=== PATIENT | male | born 1960 | race Two or more races ===

== ENCOUNTER 2016-08-03 08:39 | Inpatient (IN) | payer OTHER ==
[~2016-08-03] VITALS: Ht 167.6 cm; Wt 88.5 kg
[2016-08-03 08:46] VITALS: BP 162/98
--- NOTE | 2016-08-03 08:59 | NUR ---
Patient ambulated to bed 04.
--- NOTE | 2016-08-03 09:00 | NUR ---
56M BIB FAMILY C/O BL UPPER BACK PAIN, RADIATING TO BL SIDES, SHOULDERS, AND ANTERIOR CHEST, SHARP, 8/10 X 1 WEEK; PT STATES WENT TO URGENT CARE ON SUNDAY, PRESCRIBED IBUPROFEN W/ NO RELIEF OF PAIN. PT DENIES TRAUMA OR INJURY TO SITE AT THIS TIME; A&OX4, BL LUNG SOUNDS CLEAR, RR EVEN/UNLABORED, SKIN IS WARM/DRY/INTACT AT THIS TIME; PT DENIES N/V/D AT THIS TIME; AMBULATORY W/ STEADY GAIT; PT RESTING IN BED W/ HOB ELEVATED AND IN LOWEST POSITION; FAMILY AT BEDSIDE; ER MD MADE AWARE OF STATUS. WILL CONTINUE TO MONITOR.
--- NOTE | 2016-08-03 09:09 | NUR ---
Dr. Atwood evaluating patient at bedside.
[2016-08-03] MEDS ORDERED: NACL 0.9% 1,000 ML IV ONE (09:10)
[2016-08-03] MEDS ORDERED: HYDROmorphone 1 MG/ML AMP IVP ONE (09:10)
[2016-08-03] MEDS ORDERED: ONDANSETRON 4 MG/2 ML VIAL IVP ONE (09:10)
--- NOTE | 2016-08-03 09:24 | NUR ---
PT TAKEN TO CT VIA W/C ACCOMPANIED BY OIL TRANSPORT DRIVER.
[2016-08-03 09:26] LABS: WHITE BLOOD COUNT (AUTO) 4.5 K/uL (4.8-10.8)
[2016-08-03 09:29] LABS: HEMATOCRIT 46.8 % (36-52); HEMOGLOBIN 16.1 g/dL (12.0-18.0); MEAN CORPUSCULAR HEMOGLOBIN 31 pg (27-31); MEAN CORPUSCULAR HGB CONC 34 g/dL (33-37); MEAN CORPUSCULAR VOLUME 91 fL (80-94); PLATELET COUNT (AUTO) 201 K/uL (140-450); RED BLOOD CELL COUNT(AUTO) 5.17 MIL/uL (4.20-6.10)
[2016-08-03 09:43] LABS: ALBUMIN 3.8 g/dL (3.4-5.0); ANION GAP 16.8 (8-16); CALCIUM 7.3 mg/dL (8.5-10.1); CARBON DIOXIDE 22.5 mmol/L (21-32); POTASSIUM 4.3 mmol/L (3.5-5.1); TOTAL BILIRUBIN 0.9 mg/dL (0.0-1.0)
[2016-08-03 09:45] LABS: EOSINOPHILS % (MANUAL) 3 % (0-4); LYMPHOCYTES % (MANUAL) 34 % (20-46); MONOCYTES % (MANUAL) 5 % (5-12); NEUTROPHILS % (MANUAL) 58 (43-65)
--- NOTE | 2016-08-03 10:18 | NUR ---
Dr. Atwood at bedside to re evaluate patient.
--- NOTE | 2016-08-03 10:31 | NUR ---
PT TAKEN TO XRAY VIA W/C ACCOMPANIED BY Nautal.
[2016-08-03] MEDS ORDERED: ASPIRIN 81 MG TAB.CHEW PO ONE (10:45)
--- NOTE | 2016-08-03 10:59 | NUR ---
Patient appears to be resting comfortably in bed. Respirations even and unlabored. AT BEDSIDE; DENIES ANY DISTRESS AT THIS TIME; WILL CONTINUE TO MONITOR.
--- NOTE | 2016-08-03 11:29 | NUR ---
PER ER MD DR. ESCALERA, AWAITING KETONE LEVELS BEFORE CALLING REPORT AND TRANSFERRRING PT TO FLOOR; WILL CONTINUE TO MONITOR.
--- NOTE | 2016-08-03 12:19 | NUR ---
RECEIVED CALL FROM LAB; STATED UNABLE TO RUN LIPIDS PT NOT FASTING; PT STATES HAD 1 DONUT & 1 COFFEE AT 0800 TODAY; ER MD DR. ESCALERA NOTIFIED.
[2016-08-03 12:23] LABS: CREATININE 0.6 mg/dL (0.6-1.3)
[2016-08-03 12:24] LABS: TOTAL PROTEIN, SERUM 6.5 g/dL (6.4-8.2)
--- NOTE | 2016-08-03 12:25 | NUR ---
REPORT GIVEN TO JAIME MEADOWS; ER MD DR. ESCALERA STATED MAY CALL REPORT AND HAVE RN FOLLOW UP ACETONE LEVELS WERE SENT TO [facility] AND WILL TAKE A FEW HOURS TO PROCESS;
[2016-08-03 12:30] VITALS: BP 145/94
--- NOTE | 2016-08-03 12:30 | NUR ---
ADMITTED PT FROM ER, ALERT ORIENTED X4, AMBULATORY, TRANSFERRED TO BED SAFELY AND COMFORTABLY. BREATHING EVEN AND UNLABORED UPON AUSCULTATION, NO ACUTE DISTRESS NOTED. HOOKED TO ENGINEER CONDUCTOR. SINUS RHYTHM NOTED. DENIES ANY PAIN AT THIS TIME. ACTIVE BOWEL SOUNDS PRESENT ON ALL FOUR QUADRANTS. DENIES ANY BLADDER OR BOWEL ELIMINATION PROBLEM. SKIN INTACT, BODY ASSESSMENT DONE. ON FALL PRECAUTION DUE TO PAST HISTORY OF FALL. SAFETY PRECAUTION MAINTAINED, CALL LIGHT WITHIN REACH, KEPT CLEAN DRY AND COMFORTABLE.
--- NOTE | 2016-08-03 12:33 | NUR ---
Patient will be admitted to care of MAGANA. Admited to TELEMETRY. Will go to room 112A Belongings list completed. Report to ABDIEL SANDOVAL; ABDIEL SANDOVAL NOTIFIED TO FOLLOW UP ON PT'S ACETONE LEVEL SENT TO [facility].
[2016-08-03] MEDS ORDERED: INFLUENZA VIRUS VACCINE QUAD 0.5 ML SYR IMVAC SCH (14:00)
[2016-08-03] MEDS ORDERED: PNEUMOCOCCAL VACCINE 23 MCG/0.5 ML VIAL IMVAC SCH (14:00)
[2016-08-03] MEDS ORDERED: GLIP10TA3 PO (14:05)
[2016-08-03] MEDS ORDERED: METF850T PO (14:05)
[2016-08-03] MEDS ORDERED: LISI10TA11 PO (14:05)
[2016-08-03] MEDS ORDERED: MORPHINE SULFATE 2 MG/ML SYR IVP PRN (15:20)
[2016-08-03] MEDS ORDERED: ONDANSETRON 4 MG/2 ML VIAL IVP PRN ×2 (15:20→19:40)
[2016-08-03] MEDS ORDERED: DEXTROSE 50% 50 ML SYR IVP PRN (15:20)
[2016-08-03] MEDS ORDERED: HYDROcodone/APAP 5/325 MG 1 TAB TAB PO PRN (15:20)
[2016-08-03] MEDS ORDERED: ACETAMINOPHEN 325 MG TAB PO PRN ×2 (15:20→19:40)
--- NOTE | 2016-08-03 15:30 | NUR ---
VERIFIED ORDERS WITH DR. MAGANA AND CARRIED OUT.
[2016-08-03 16:00] VITALS: BP 138/89
--- NOTE | 2016-08-03 16:30 | NUR ---
DUE MEDS GIVEN PO, TOLERATED WELL, COMPLAINED OF LEFT UPPER CHEST PAIN 8/10, MEDICATED PER MD ORDER.
[2016-08-03] MEDS: BLOOD GLUCOSE MONITORING 1 DEV DEV FS SCH ×2 (16:54→21:11)
[2016-08-03] MEDS: glipiZIDE 10 MG TAB PO SCH (16:56)
[2016-08-03] MEDS: INSULIN LISPRO SLIDING SCALE 100 UNITS/ML VIAL SUBQ PRN ×2 (17:00→21:14)
--- NOTE | 2016-08-03 18:00 | NUR ---
PT AWAKE, VERBALIZED PAIN IS SUBSIDING, ATE 100% OF HIS DINNER, WALKING AROUND HIS BED, FAMILY PRESENT. KEPT CLEAN, DRY AND COMFORTABLE, NEEDS ATTENDED.
--- NOTE | 2016-08-03 19:24 | NUR ---
ENDORSED TO NURSE KENNY, PT ON STABLE CONDITION, NO PAIN AT THIS TIME.
--- NOTE | 2016-08-03 19:25 | NUR ---
RECEIVED PT FROM DAY SHIFT NURSE PT IS AAOX4 AMBULATORY HL ON LEFT AC PATENT, ON TELEMETRY SR, DENIES ANY PAIN AT THIS TIME RELATIVES AT BED SIDE INITIAL ASSESSMENT DONE
[2016-08-03] MEDS ORDERED: LORazepam 2 MG/ML VIAL IVP PRN (19:40)
[2016-08-03 20:00] VITALS: BP 141/88
[2016-08-03] MEDS: MORPHINE SULFATE 2 MG/ML SYR IVP PRN (20:30)
--- NOTE | 2016-08-03 20:30 | NUR ---
REGINO DAVIS IS HERE AND SEE THE PT AND ORDER TO TRANSFER PT TO ANOTHER ROOM PT WILL BE ON 109 B
[2016-08-03] MEDS: NACL 0.9% 1,000 ML IV SCH (20:31)
--- NOTE | 2016-08-03 21:00 | NUR ---
BLOOD SUGAR TEST 185 COVERAGE WITH 2 UNITS HUMALOG SUBQ
[2016-08-04] VITALS: BP 135/73
--- NOTE | 2016-08-04 | NUR ---
PT REMAIN STABLE SLEEPING WELL DENIES ANY PAIN ON TELEMETRY SR
[2016-08-04 04:00] VITALS: BP 136/78
[2016-08-04] MEDS: MORPHINE SULFATE 2 MG/ML SYR IVP PRN ×4 (04:07→23:47)
--- NOTE | 2016-08-04 04:10 | NUR ---
PT COMPLAINT OF CHEST PAIN MEDIC WILL BE GIVEN ARDER
--- NOTE | 2016-08-04 05:26 | NUR ---
AFTERLKPAIN MEDIC GIVEN PT IS SLEEPING WELL NOT DISTRESS NOTED
[2016-08-04] MEDS: HYDROcodone/APAP 5/325 MG 1 TAB TAB PO PRN ×3 (06:02→20:59)
[2016-08-04] MEDS: BLOOD GLUCOSE MONITORING 1 DEV DEV FS SCH ×4 (06:03→20:54)
[2016-08-04] MEDS: INSULIN LISPRO SLIDING SCALE 100 UNITS/ML VIAL SUBQ PRN ×3 (06:04→20:55)
[2016-08-04 06:10] LABS: HEMATOCRIT 44.2 % (36-52); HEMOGLOBIN 15.3 g/dL (12.0-18.0); MEAN CORPUSCULAR HEMOGLOBIN 32 pg (27-31); MEAN CORPUSCULAR HGB CONC 35 g/dL (33-37); MEAN CORPUSCULAR VOLUME 91 fL (80-94); PLATELET COUNT (AUTO) 193 K/uL (140-450); RED BLOOD CELL COUNT(AUTO) 4.85 MIL/uL (4.20-6.10); RED CELL DISTRIBUTION WIDTH 12.5 % (11.6-13.7); WHITE BLOOD COUNT (AUTO) 4.6 K/uL (4.8-10.8)
--- NOTE | 2016-08-04 06:31 | NUR ---
BLOOD SUGAR TEST 214 COVERAGE WITH 4 UNITS SUBQ HUMALOG
[2016-08-04 06:43] LABS: ALBUMIN 3.1 g/dL (3.4-5.0); ANION GAP 13.9 (8-16); CALCIUM 6.8 mg/dL (8.5-10.1); CREATININE 0.6 mg/dL (0.6-1.3); MAGNESIUM 1.8 mg/dL (1.8-2.4); POTASSIUM 3.9 mmol/L (3.5-5.1); TOTAL BILIRUBIN 0.6 mg/dL (0.0-1.0)
[2016-08-04 06:59] LABS: CHOL/HDL RATIO 15.5 (1-4.5); CHOLESTEROL 419 mg/dL (<200); HDL CHOLESTEROL 27 mg/dL (40-60)
--- NOTE | 2016-08-04 07:15 | NUR ---
RECEIVED PT IN BED AWAKE ALERT ORIENTEDX4, BREATHING EVEN AND UNLABORED ON ROOM AIR, DENIES ANY PAIN OR DISCOMFORT AT THIS TIME. ACTIVE BOWEL SOUNDS NOTED ON ALL FOUR QUADRANTS. DENIES ANY PAIN OR DISCOMFORT WITH VOIDING AND BOWEL MOVEMENT. WITH ON GOING IVF OF 0.9NACL AT 75ML PER HOUR ON LEFT AC, INFUSING WELL, NO INFILTRATION NOTED. PT AMBULATES TO THE BATHROOM WITH NO PROBLEM. INITIAL VITAL SIGNS TAKEN AND RECORDED. SAFETY PRECAUTION MAINTAINED. CALL LIGHT WITHIN REACH. KEPT COMFORTABLE.
[2016-08-04 07:29] LABS: TRIGLYCERIDES 2782 mg/dL (30-150)
[2016-08-04] MEDS ORDERED: metFORMIN 850 MG TAB PO SCH (07:30)
[2016-08-04 07:52] LABS: TOTAL PROTEIN, SERUM 6.7 g/dL (6.4-8.2)
[2016-08-04 08:00] VITALS: BP 132/85
--- NOTE | 2016-08-04 08:02 | NUR ---
PATIENT HAS BEEN SCREENED AND CATEGORIZED HIGH NUTRITION RISK. PATIENT WILL BE SEEN WITHIN 1-2 DAYS OF ADMISSION. 08/04/16-08/05/[address]
[2016-08-04 08:45] LABS: PLATELET ESTIMATE ADEQUATE
[2016-08-04 08:46] LABS: BAND % (MANUAL) 1 % (0-8); BASOPHILS % (MANUAL) 0 % (0-2); EOSINOPHILS % (MANUAL) 1 % (0-4); LYMPHOCYTES % (MANUAL) 28 % (20-46); MONOCYTES % (MANUAL) 7 % (5-12); NEUTROPHILS % (MANUAL) 63 (43-65)
[2016-08-04] MEDS ORDERED: ATORVASTATIN 80 MG TAB PO SCH (09:00)
--- NOTE | 2016-08-04 09:25 | NUR ---
FAXED INITIAL REVIEW TO [facility] [phone] PHONE PRASAD [phone]
[2016-08-04] MEDS: LISINOPRIL 10 MG TAB PO SCH (09:52)
[2016-08-04] MEDS: glipiZIDE 10 MG TAB PO SCH ×3 (09:52→17:52)
[2016-08-04] MEDS: NACL 0.9% 1,000 ML IV SCH ×2 (09:52→23:47)
[2016-08-04] MEDS: ENOXAPARIN 40 MG/0.4 ML SYR SUBQ SCH (09:56)
--- NOTE | 2016-08-04 13:14 | NUR ---
08/04/16 RD INITIAL ASSESSMENT COMPLETED PLEASE REFER TO NUTRITION ASSESSMENT UNDER CARE ACTIVITY FOR ESTIMATED NUTRITIONAL NEEDS. RD RECOMMENDATIONS: 1. [facility]OMM[facility]/T ELEVATED GLUCOSE LEVELS OF 277 AND POC GLUCOSE RANGING FROM [phone] AND PHX OF DM II 3. RD WILL F/U 3-5 DAYS; MODERATE RISK. SHA LOPEZ, RD
[2016-08-04 13:17] VITALS: BP 135/80
[2016-08-04 16:00] VITALS: BP 129/83
--- NOTE | 2016-08-04 18:51 | NUR ---
PT AWAKE, SITTING ON BEDSIDE CHAIR, KEPT CLEAN DRY AND COMFORTABLE. NEEDS ATTENDED. DENIES ANY PAIN OR DISCOMFORT AT THIS TIME, VERBALIZED RELIEF FROM CHEST PAIN AFTER, MORPHINE IVP ADMINISTERED PRN ORDERED. WILL CONTINUE TO MONITOR.
--- NOTE | 2016-08-04 19:30 | NUR ---
PT ENDORSED TO RN KENNY ON STABLE CONDITION
--- NOTE | 2016-08-04 19:31 | NUR ---
RECEIVED PT FROM DAY SHIFT NURSE PT UKRAINIAN SPEAKER AAOX4 AMBULATORY ON TELEMETRY SR IV ON LEFT AC INFUSING WELL RELATIVES AT BED SIDE INITIAL ASSESSMENT DONE
[2016-08-04 20:00] VITALS: BP 141/89
[2016-08-04] MEDS ORDERED: INSULIN DETEMIR 100 UNITS/ML 10 ML VIAL SUBQ SCH (21:00)
--- NOTE | 2016-08-04 21:30 | NUR ---
BLOOD SUGAR TEST 227 COVERAGE WITH 4 UNITS HUMALOG SUB Q
--- NOTE | 2016-08-04 22:30 | NUR ---
PT REMAIN STABLE SLEEPING WELL NOT DISTRESS NOTED AT THIS TIME ON TELEMETRY SR
[2016-08-05] VITALS: BP 128/85
--- NOTE | 2016-08-05 00:37 | NUR ---
PT SLEEPING WELL AFTER PPAIN MEDIC GIVEN , ON TELEMETRY SR AND IV ON LEFT AC INFUSING WELL
[2016-08-05 04:00] VITALS: BP 141/84
--- NOTE | 2016-08-05 04:00 | NUR ---
PT AWAKE AMBULATES TO THE RESTROOM VOIDING WELL ON TELEMETRY SR, IV ON LEFT AC INFUSING WELL, NOT DISTRESS AT THIS TIME NOTED
[2016-08-05] MEDS: MORPHINE SULFATE 2 MG/ML SYR IVP PRN (05:46)
[2016-08-05] MEDS: BLOOD GLUCOSE MONITORING 1 DEV DEV FS SCH ×4 (05:47→20:30)
[2016-08-05] MEDS: INSULIN LISPRO SLIDING SCALE 100 UNITS/ML VIAL SUBQ PRN ×4 (05:49→20:33)
[2016-08-05 06:05] LABS: HEMATOCRIT 42.9 % (36-52); HEMOGLOBIN 15.2 g/dL (12.0-18.0); MEAN CORPUSCULAR HEMOGLOBIN 32 pg (27-31); MEAN CORPUSCULAR HGB CONC 36 g/dL (33-37); MEAN CORPUSCULAR VOLUME 90 fL (80-94); PLATELET COUNT (AUTO) 199 K/uL (140-450); RED BLOOD CELL COUNT(AUTO) 4.79 MIL/uL (4.20-6.10); RED CELL DISTRIBUTION WIDTH 12.2 % (11.6-13.7); WHITE BLOOD COUNT (AUTO) 4.6 K/uL (4.8-10.8)
--- NOTE | 2016-08-05 06:11 | NUR ---
BLOOD SUGAR TEST 219 COVERAGE WITH 4 UNITS INSULIN HUMALOG SUBQ
--- NOTE | 2016-08-05 06:27 | NUR ---
AFTER PAIN MEDIC GIVEN PT SLEEPING WELL NOT PAIN ON TELEMETRY SR
[2016-08-05 06:32] LABS: ALBUMIN 3.3 g/dL (3.4-5.0); CALCIUM 7.6 mg/dL (8.5-10.1); CARBON DIOXIDE 27.8 mmol/L (21-32); CREATININE 0.6 mg/dL (0.6-1.3); POTASSIUM 3.8 mmol/L (3.5-5.1); TOTAL BILIRUBIN 0.5 mg/dL (0.0-1.0); TOTAL PROTEIN, SERUM 6.4 g/dL (6.4-8.2)
--- NOTE | 2016-08-05 07:15 | NUR ---
RECEIVED REPORT FROM THE OPERATIONS CLERK NURSE AT BEDSIDE FOR CONTINUITY OF CARE. PT IS ALERT AND AWAKE. NOTED THE IV ON L AC 20 NS AT 75ML. PT HAS NO COMPLAINTS AT THIS TIME. WILL BE BACK TO REASSESS PT.
[2016-08-05 07:21] LABS: BAND % (MANUAL) 1 % (0-8); BASOPHILS % (MANUAL) 0 % (0-2); EOSINOPHILS % (MANUAL) 3 % (0-4); LYMPHOCYTES % (MANUAL) 36 % (20-46); MONOCYTES % (MANUAL) 7 % (5-12); NEUTROPHILS % (MANUAL) 53 (43-65); PLATELET ESTIMATE ADEQUATE
[2016-08-05 08:00] VITALS: BP 140/89
[2016-08-05] MEDS ORDERED: oxyCODONE/APAP 5/325 MG 1 TAB TAB PO PRN (08:00)
--- NOTE | 2016-08-05 08:00 | NUR ---
V/S WITHIN NORMAL RANGE. WILL CONTINUE MONITOR PT.
[2016-08-05] MEDS: LISINOPRIL 10 MG TAB PO SCH (08:42)
[2016-08-05] MEDS: ENOXAPARIN 40 MG/0.4 ML SYR SUBQ SCH (08:43)
[2016-08-05] MEDS: glipiZIDE 10 MG TAB PO SCH ×3 (08:43→16:26)
--- NOTE | 2016-08-05 09:00 | NUR ---
ADMINISTERED MORNING MEDS. PT TOLERATED WELL. WILL CONTINUE TO MONITOR PT.
[2016-08-05] MEDS: BACLOFEN 10 MG TAB PO SCH ×3 (09:10→16:26)
[2016-08-05] MEDS: INSULIN DETEMIR 100 UNITS/ML 10 ML VIAL SUBQ SCH ×2 (09:13→20:32)
[2016-08-05] MEDS: oxyCODONE/APAP 5/325 MG 1 TAB TAB PO PRN ×2 (09:16→18:30)
[2016-08-05] MEDS: FENOFIBRATE 48 MG TAB PO SCH (09:19)
[2016-08-05 09:25] LABS: CHOL/HDL RATIO 15.9 (1-4.5); CHOLESTEROL 414 mg/dL (<200); HDL CHOLESTEROL 26 mg/dL (40-60); TRIGLYCERIDES 2398 mg/dL (30-150)
--- NOTE | 2016-08-05 10:20 | NUR ---
IS HERE. WANTED TO KNOW WHAT THE HAD SAID. WILL LOOK INTO IT AND LET HER KNOW. PT HAS NO COMPLAINTS. NO SIGNS OF DISTRESS. WILL CONTINUE TO MONITOR PT.
--- NOTE | 2016-08-05 11:25 | NUR ---
SPOKE TO PT AND ABOUT DR. KRISHNAMURTHY'S PLAN, TO KEEP HIM FOR A DAY OR TWO MORE. PT'S BACK PAIN AND DIABETES IS NOT WELL CONTROLLED. DR. MAGANA DID INCLUDE BACLOFEN AND TRICOR AND LEVEMIR 10 UNITS BID. WE WILL SEE. PT C/O OF OROPEZA, REQUESTED SOME TYLENOL. WILL GIVE IT. Addendum: 08/05/16 at 1218 by Ema Weathers RN EDUCATED PT AND ABOUT DIABETES AND HOW TO CONTROL. GOOD DIET AND EXERCISE, REGULAR DRBasilia VISITS AND TAKE MEDICATION ORDERED. THEY BOTH VERBALIZED UNDERSTANDING.
[2016-08-05] MEDS: NACL 0.9% 1,000 ML IV SCH (11:46)
--- NOTE | 2016-08-05 13:00 | NUR ---
PT ASLEEP. I WOKE UP PT AND ADMINISTERED AFTERNOON MEDS. PT TOLERATED WELL. NO OTHER COMPLAINTS. WENT RIGHT BACK TO SLEEP. IS NO LONGER AT BEDSIDE. WILL CONTINUE TO MONITOR PT.
--- NOTE | 2016-08-05 15:29 | NUR ---
PT IS SLEEPING. IS BACK AT BEDSIDE. NO SIGNS OF DISTRESS. WILL CONTINUE TO MONITOR PT.
[2016-08-05 15:55] VITALS: BP 143/87
--- NOTE | 2016-08-05 17:16 | NUR ---
PT SLEEPING COMFORTABLY. NO SIGNS OF DISTRESS. WILL CONTINUE TO MONITOR PT.
--- NOTE | 2016-08-05 19:10 | NUR ---
ENDORSED PT TO THE TIRE AND TUBE REPAIRER NURSE AT BEDSIDE FOR CONTINUITY OF CARE. PT IS AWAKE AND AT BEDSIDE. PT IS IN STABLE CONDITION.
--- NOTE | 2016-08-05 19:18 | NUR ---
RECEIVED REPORT FROM ABDIEL TESFAYE, AT BEDSIDE. INITIAL ASSESSMENT AND BODY CHECK DONE. PATIENT AAO X 4, ABLE TO FOLLOW COMMAND AND MAKE NEEDS KNOWN AND AMBULATORY BY SELF WITH STEADY GAIT. PATIENT CURRENTLY SITTING UP ON THE BED AND TALKING TO HIS . NO S/S OF DISTRESS OR SOB NOTED. SKIN WARM/DRY TO TOUCH WITH NORMAL COLOR AND INTACT. DISCUSSED PLAN OF CARE, PAIN MANAGEMENT AND MEDICATION REGIMEN WITH PATIENT AND PATIENT VERBALIZED UNDERSTANDING. PLACED PATIENT ON SAFETY PRECAUTIONS AND WILL CONTINUE TO MONITOR. CALL LIGHT LEFT WITHIN REACH.
--- NOTE | 2016-08-05 22:00 | NUR ---
ADMINISTERED DUE MEDICATION MD'S ORDERED WITH EDUCATION GIVEN. PATIENT COMPLYING WITH MEDICATION AND TOLERATED WELL. RESTED COMFORTABLE IN BED WITH ALL NEEDS ATTENDED. WILL CONTINUE TO MONITOR.
[2016-08-06] VITALS: BP 122/74
[2016-08-06] MEDS: NACL 0.9% 1,000 ML IV SCH
--- NOTE | 2016-08-06 00:39 | NUR ---
PATIENT ASLEEP COMFORTABLY IN BED, EASILY AROUSED AND REMAINED IN STABLE CONDITION. NO ANY COMPLAINT MADE. WILL CONTINUE TO MONITOR.
[2016-08-06] MEDS: oxyCODONE/APAP 5/325 MG 1 TAB TAB PO PRN (01:33)
--- NOTE | 2016-08-06 03:50 | NUR ---
PATIENT IS CLINICALLY STABLE WITHOUT APPARENT DISTRESS NOTED. WILL CONTINUE TO MONITOR.
[2016-08-06] MEDS: BLOOD GLUCOSE MONITORING 1 DEV DEV FS SCH ×2 (05:44→11:37)
[2016-08-06] MEDS: INSULIN LISPRO SLIDING SCALE 100 UNITS/ML VIAL SUBQ PRN ×2 (05:46→11:48)
[2016-08-06 06:28] LABS: CHOL/HDL RATIO 15.8 (1-4.5); CHOLESTEROL 364 mg/dL (<200); HDL CHOLESTEROL 23 mg/dL (40-60)
[2016-08-06 06:41] LABS: TRIGLYCERIDES 2177 mg/dL (30-150)
--- NOTE | 2016-08-06 07:20 | NUR ---
ENDORSED PLAN OF CARE TO ABDIEL ALBARRAN, AT BEDSIDE. PATIENT RESTED WELL THROUGHOUT THE SHIFT AND REMAINED IN STABLE CONDITION WITHOUT S/S OF DISTRESS NOTED.
--- NOTE | 2016-08-06 07:21 | NUR ---
RECEIVED REPORT FROM ABDIEL JAEGER. PT IS RESTING ON BED, AAO X4, SKIN INTACT, IV ON LEFT AC PATENT AND INTACT, INITIAL ASSESSMENT DONE, NO S/S OF RESPIRATORY DISTRESS OR DISCOMFORT NOTED, DISCUSSED PLAN OF CARE. PT VERBALIZED UNDERSTANDING, SAFETY/FALL PRECAUTION ENFORCED, CALL LIGHT WITHIN REACH, WILL CONTINUE TO MONITOR.
[2016-08-06 08:00] VITALS: BP 135/96
[2016-08-06] MEDS: LISINOPRIL 10 MG TAB PO SCH (08:31)
[2016-08-06] MEDS: BACLOFEN 10 MG TAB PO SCH (08:31)
[2016-08-06] MEDS: FENOFIBRATE 48 MG TAB PO SCH (08:31)
[2016-08-06] MEDS: glipiZIDE 10 MG TAB PO SCH (08:31)
[2016-08-06] MEDS: ENOXAPARIN 40 MG/0.4 ML SYR SUBQ SCH (08:33)
[2016-08-06] MEDS: INSULIN DETEMIR 100 UNITS/ML 10 ML VIAL SUBQ SCH (08:37)
--- NOTE | 2016-08-06 08:41 | NUR ---
DUE MEDS GIVEN, PT TOLERATED WELL, CALL LIGHT WITHIN REACH, WILL CONTINUE TO MONITOR.
[2016-08-06] MEDS ORDERED: FENO145T PO (11:03)
[2016-08-06] MEDS ORDERED: BACL10TA4 PO (11:03)
[2016-08-06] MEDS ORDERED: ACET-2869 PO (11:03)
--- NOTE | 2016-08-06 11:55 | NUR ---
DISCHARGE INSTRUCTIONS AND PRESCRIPTION GIVEN, PT VERBALIZED UNDERSTANDING, REMOVED ID WRISTBAND AND IV, CATHETER TIP INTACT, PT REFUSED PNA AND FLU VACCINE, ADVISED PT TO GET VACCINES FROM PCP IF HE CHANGE HIS MIND, VERBALIZED UNDERSTANDING. PT LEFT THE UNIT AMBULATING. PT STABLE UPON DISCHARGE.
== END 2016-08-06 11:55 | disposition home or self-care (01) | DRG 351 ==
LOC: MED 08:39 → MTU 12:24
PROVIDERS: ADMIT Hospitalist; ATTEND Hospitalist
DX: M79.1 Myalgia (principal); E11.65 Type 2 diabetes mellitus with hyperglycemia; I11.9 Hypertensive heart disease without heart failure; K76.89 Other specified diseases of liver; I20.0 Unstable angina; M79.602 Pain in left arm; M54.9 Dorsalgia, unspecified; E78.5 Hyperlipidemia, unspecified; G51.0 Bell's palsy; Z98.890 Other specified postprocedural states
CPT/HCPCS: 36415; 71020; 80053; 82009; 82150; 82948; 83036; 83690; 83735; 84443; 84484; 85025; 86038; 87081; 93005; 96361; 96374; 96375; 99285; J1170; J1650; J1815; J2270; J2405; J7030

== ENCOUNTER 2016-08-31 08:24 | Emergency (ER) | payer OTHER ==
[~2016-08-31] VITALS: Ht 167.6 cm; Wt 83.9 kg
[~2016-08-31 08:24] MED LIST: ACET-2869 PO; BACL10TA4 PO; FENO145T PO; GLIP10TA3 PO; LISI10TA11 PO; METF850T PO
[2016-08-31 08:28] VITALS: BP 131/101
--- NOTE | 2016-08-31 08:33 | NUR ---
Patient ambulated to bed 08.
--- NOTE | 2016-08-31 08:40 | NUR ---
PATIENT PRESENTS TO ED WITH CHEST AND UPPER BACK PAIN X1 MONTH; DENIES N/V/D; SKIN IS PINK/WARM/DRY; AAOX4 WITH EVEN AND STEADY GAIT; LUNGS CLEAR BL; HR EVEN AND REGULAR; PT DENIES ANY FEVER, CP, SOB, OR COUGH AT THIS TIME; PATIENT STATES CHEST AND BACK PAIN OF 10/10 AT THIS TIME; VSS; PATIENT POSITIONED FOR COMFORT; HOB ELEVATED; BEDRAILS UP X2; BED DOWN. ER MD MADE AWARE OF PT STATUS.
--- NOTE | 2016-08-31 08:46 | NUR ---
Dr. Hu evaluating patient at bedside.
[2016-08-31] MEDS ORDERED: KETOROLAC 60 MG/2 ML VIAL IM ONE (08:50)
[2016-08-31 09:19] VITALS: BP 141/98
== END 2016-08-31 09:19 | disposition home or self-care (01) ==
LOC: MED 08:24
DX: R07.89 Other chest pain (principal); E11.9 Type 2 diabetes mellitus without complications; I10 Essential (primary) hypertension
CPT/HCPCS: 93005; 96372; 99283; J1885

== ENCOUNTER 2019-09-05 13:33 | Emergency (ER) | payer OTHER ==
[~2019-09-05] VITALS: Ht 149.9 cm; Wt 70.8 kg
[~2019-09-05 13:33] MED LIST changes: -ACET-2869 PO; +HYDR-5122 PO
[2019-09-05 13:39] VITALS: BP 140/84
[2019-09-05 13:44] VITALS: BP 140/84
--- NOTE | 2019-09-05 13:44 | NUR ---
Patient ambulated to bed 4
--- NOTE | 2019-09-05 13:54 | NUR ---
59 Y/O MALE PRESENTS WITH ITCHINESS/STABBING PAIN ON LOWER LEFT BACK THAT PT BELIEVES TO BE RASH THAT STARTED 4-5 DAYS AGO. UPON INSPECTIONS, NO REDNESS/WELTS/SWELLING NOTED. SMALL RED BUMPS NOTED ON LEFT LOWER BACK. DENIES N/V/D/FEVER. RESP EVEN AND UNLABORED. DENIES ANY SOB/CP. HX SHINGLES 4 YEARS AGO
--- NOTE | 2019-09-05 13:57 | NUR ---
Patient discharged with v/s stable. Written and verbal after care instructions given and explained about early shingles. Patient alert, oriented and verbalized understanding of instructions. Ambulatory with steady gait. All questions addressed prior to discharge. ID band removed. Patient advised to follow up with PMD. Rx of prednisone and valtrex given. Patient educated on indication of medication including possible reaction and side effects. Opportunity to ask questions provided and answered.
== END 2019-09-05 13:57 | disposition home or self-care (01) ==
LOC: MED 13:33
DX: B02.9 Zoster without complications (principal); E11.9 Type 2 diabetes mellitus without complications; I10 Essential (primary) hypertension; Z79.899 Other long term (current) drug therapy; Z79.84 Long term (current) use of oral hypoglycemic drugs
CPT/HCPCS: 99283

== ENCOUNTER 2019-10-07 10:12 | Emergency (ER) | payer OTHER ==
[~2019-10-07] VITALS: Ht 167.6 cm; Wt 86.2 kg
--- NOTE | 2019-10-07 10:17 | NUR ---
PT AMBULATED TO BED 12
[2019-10-07 10:19] VITALS: BP 133/80
--- NOTE | 2019-10-07 10:25 | NUR ---
59 y/o male presented in ED c/o lower left back pain x 1.5 months . Pt states it feels like a ball under his skin , rates 9/10 constant stabbing pain. Pt states the only thing that helps take the pain away is edibles. Pt states he previously had shingles and thought this might be the same thing but doesn't feel the same as the time he had shingles. Pt breathing even and unlabored, A/O x 4. Pt sitting in bed at lowest position, side rails x1. Hx: Shingles, DM, HTN Rx: Glyperside , metformin
[2019-10-07] MEDS ORDERED: IBUPROFEN 400 MG TAB PO ONE (10:40)
--- NOTE | 2019-10-07 10:45 | NUR ---
Pt taken to X-Ray via wheelchair.
--- NOTE | 2019-10-07 10:53 | NUR ---
Pt returned from x-ray via wheelchair. Pt sitting in bed at lowest position, side rails x1
--- NOTE | 2019-10-07 10:55 | NUR ---
Pt ambulated to restroom w/ steady gait.
--- NOTE | 2019-10-07 11:00 | NUR ---
pt sitting in bed at lowest position, side rails x1.
--- NOTE | 2019-10-07 11:24 | NUR ---
Dr. Nuno at bedside.
[2019-10-07 11:40] VITALS: BP 133/80
--- NOTE | 2019-10-07 11:40 | NUR ---
Patient discharged with v/s stable. Written and verbal after care instructions given and explained. Patient alert, oriented and verbalized understanding of instructions. Ambulatory with steady gait. All questions addressed prior to discharge. ID band removed. Patient advised to follow up with PMD. Rx of Speer, Naprosyn, Hydrocortisone given. Patient educated on indication of medication including possible reaction and side effects. Opportunity to ask questions provided and answered.
== END 2019-10-07 11:40 | disposition home or self-care (01) ==
LOC: MED 10:12
DX: M54.5 Low back pain (principal); E11.9 Type 2 diabetes mellitus without complications; I10 Essential (primary) hypertension; L24.9 Irritant contact dermatitis, unspecified cause; Z90.49 Acquired absence of other specified parts of digestive tract; Z79.899 Other long term (current) drug therapy
CPT/HCPCS: 72100; 99283

== ENCOUNTER 2020-08-22 12:22 | Emergency (ER) | payer OTHER ==
[~2020-08-22] VITALS: Ht 170.2 cm; Wt 83.9 kg
[~2020-08-22 12:22] MED LIST changes: +LISI-486 PO; -LISI10TA11 PO
[2020-08-22 12:25] VITALS: BP 143/89
--- NOTE | 2020-08-22 12:25 | NUR ---
PT AMBULATED TO BED 2
--- NOTE | 2020-08-22 12:26 | NUR ---
60y M BIB Self c/c 10/ continous R Neck pain that radiates to his head. Pt reports not being able to move neck . Denies paresthesia, edema, chest pain, SOB. Reports taking extra strength tylenol that alleviates it to 5/10 but pain remains. Unlabored and even breathing noted. CMS+ PMH: DM2, HTN, HPD NKA RX: Metformin, Invokana, Aspirin, pt is unsure of HTN and other RX.
--- NOTE | 2020-08-22 13:44 | NUR ---
ERMD AT BEDSIDE EVALUATING PT
[2020-08-22] MEDS ORDERED: CYCLOBENZAPRINE 10 MG TAB PO ONE (13:50)
--- NOTE | 2020-08-22 14:26 | NUR ---
PT TAKEN TO CT VIA WHEELCHAIR
--- NOTE | 2020-08-22 14:36 | NUR ---
PT RETURNED FROM CT VIA WHEELCHAIR, PLACED BACK ON CARDAIC MONITOR/PULSE OX
[2020-08-22] MEDS ORDERED: diphenhydrAMINE 50 MG/ML VIAL IVP ONE (15:10)
[2020-08-22] MEDS ORDERED: KETOROLAC 30 MG/ML VIAL IVP ONE (15:10)
[2020-08-22] MEDS ORDERED: LIDOCAINE 2% 1000 MG/50 ML VIAL INJ ONE (15:50)
[2020-08-22] MEDS ORDERED: IBUP-1842 PO (16:35)
[2020-08-22] MEDS ORDERED: CYCL10TA33 PO (16:35)
[2020-08-22 16:44] VITALS: BP 133/84
--- NOTE | 2020-08-22 16:44 | NUR ---
Patient discharged with v/s stable. Written and verbal after care instructions given and explained. Patient alert, oriented and verbalized understanding of instructions. Ambulatory with steady gait. All questions addressed prior to discharge. ID band removed. Patient advised to follow up with PMD. Rx of Cyclobenzaprine and Motrin given. Patient educated on indication of medication including possible reaction and side effects. Opportunity to ask questions provided and answered.
== END 2020-08-22 16:44 | disposition home or self-care (01) ==
LOC: MED 12:22
DX: G44.209 Tension-type headache, unspecified, not intractable (principal); M54.2 Cervicalgia; E11.9 Type 2 diabetes mellitus without complications; I10 Essential (primary) hypertension; Z79.899 Other long term (current) drug therapy
CPT/HCPCS: 70450; 96374; 96375; 99284; J1200; J1885; J2001